=== PATIENT | female | born 1970 | race Caucasian/White ===

== ENCOUNTER 2017-11-29 08:32 | Inpatient (IN) | payer OTHER ==
[2017-11-29 08:44] VITALS: BMI 30.2
--- NOTE | 2017-11-29 08:46 | PDOC ---
History of Present Illness - General Chief Complaint: Syncope/Near Syncope Stated Complaint: SYNCOPE Time Seen by Provider: 11/29/17 08:46 - History of Present Illness Initial Comments: 11/29/17 08:55 The patient is a 47 year old female with no significant PMH who presents for evaluation of syncope. The patient is accompanied by family who assist in providing the history. 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 They are unsure of how long the patient lost consciousness and the patient does not remember the event. She does note that when she stands, she experiences lightheadedness and generalized weakness. She notes that she has been experiencing "flu-like symptoms" over the past few days as well. She otherwise denies fevers, chills, SOB, chest pain , nausea, vomiting, abdominal pain, numbness, tingling, weakness, or changes with urination or bowel movements. Past History - Past Medical History Allergies/Adverse Reactions: Allergies Allergy/AdvReac Type Severity Reaction Status Date / Time No Known Allergies Allergy Verified 11/29/17 08:38 Home Medications: Ambulatory Orders NK [No Known Home Medication] 11/29/17 COPD: No - Suicide/Smoking/Psychosocial Hx Smoking History: Never smoked Have you smoked in the past 12 months: No Information on smoking cessation initiated: No Hx Alcohol Use: No Drug/Substance Use Hx: No Substance Use Type: None Review of Systems - Review of Systems Comments:: 11/29/17 09:02 Constitutional: Generalized weakness. No fevers, chills, malaise HEENT: No Rhinorrhea, nasal congestion, visual changes Cardiovascular: Syncope, Lightheadedness. No chest pain, palpitations, Respiratory: No Cough, SOB, Hemoptysis, Gastrointestinal: No Abdominal pain, Nausea, Vomiting, Constipation, Diarrhea, Melena Genitourinary: No Dysuria, Frequency, Urgency, Hesitancy, Hematuria, Flank pain Musculoskeletal: No Myalgia, arthralgia Skin: No rashes, itching, bruising, pallor Neurologic: No Headache, Dizziness, Numbness, Weakness, or Tingling Psychiatric: No Hallucinations. No SI or HI *Physical Exam - Vital Signs Last Vital Signs Temp Pulse Resp BP Pulse Ox 98.1 F 76 18 104/51 L 100 11/29/17 08:40 11/29/17 08:40 11/29/17 08:40 11/29/17 08:40 11/29/17 08:40 - Physical Exam Comments: 11/29/17 09:03 General Appearance: Nourished. No Apparent Distress HEENT: EOMI, LEATHA. No Pharyngeal Erythema, Tonsillar Exudate, Tonsillar Erythema Neck: No Cervical Lymphadenopathy Respiratory/Chest: Lungs Clear, Normal Breath Sounds. No Crackles, Rales, Rhonchi, Wheezing Cardiovascular: Regular Rhythm, Regular Rate. No Murmur, Gallops, Rubs Gastrointestinal/Abdominal: Normal Bowel Sounds, Soft. No Guarding, Rebound, Tenderness Musculoskeletal: No CVA Tenderness Extremity: Normal Capillary Refill Integumentary: Normal Color, Dry, Warm Neurologic: cardiology technologist II-XII NML intact, Fully Oriented, Alert, Normal Mood/Affect, Normal Response, Motor Strength 5/5. Heart Score/ECG Review #1 ECG reviewed & interpreted by me at: 09:50 General ECG Interpretation: Sinus Rhythm, Normal Rate, Normal Intervals, No acute ischemic changes ED Treatment Course - LABORATORY CBC & Chemistry Diagram: 11/29/17 09:49 11/29/17 09:49 Medical Decision Making - Medical Decision Making 11/29/17 09:04 The patient is a 47 year old female with no significant PMH who presents for evaluation of syncope. Differential includes but is not limited to: ACS, Orthostatic Hypotension, Vaso-Vagal, Dehydration, Infectious, Metabolic Derangement. Given the patient's history and physical exam, we will obtain a cbc, cmp, troponin, EKG, ua to evaluate further. We will treat the patient with iv fluids and continue to monitor and reassess while here in the ED. 11/29/17 11:18 CBC demonstrates a hgb of 5. CMP, troponin is unremarkable. We will transfuse the patient with 2 units of PRBC. The patient notes that she has very heavy periods and it is possible that her anemia is due to iron deficiency. The patient will require admission for further management. We discussed the case with the admitting team who accepted the patient for admission. *DC/Admit/Observation/Transfer Diagnosis at time of Disposition: Anemia Qualifiers: Anemia type: unspecified type Qualified Code(s): D64.9 - Anemia, unspecified Syncope Qualifiers: Syncope type: unspecified Qualified Code(s): R55 - Syncope and collapse - Discharge Dispostion Condition at time of disposition: Stable Decision to Admit order: Yes - Referrals - Patient Instructions - Post Discharge Activity
[2017-11-29] MEDS ORDERED: SODIUM CHLORIDE 1,000 ML IV STA (08:54)
--- NOTE | 2017-11-29 09:20 | PDOC ---
Attending Attestation - Resident Resident Name: RainaAbdias - ED Attending Attestation I have performed the following: I have examined & evaluated the patient, The case was reviewed & discussed with the resident, I agree w/resident's findings & plan, Exceptions are as noted - HPI HPI: 11/29/17 09:17 47-year-old female with no past medical history presents with syncope. The patient reports several days of feeling unwell and with flulike symptoms. Stated that she's been feeling generally weak and lightheaded. Once work today and was sitting on the toilet when she felt lightheaded and dizzy. She says syncopized and fell on the ground. Denies head trauma. Does not take any medications. Denied chest pressure runs of breath. Patient was at work when this occurred and her coworkers called 911. - Physicial Exam PE: 11/29/17 09:19 GENERAL: Awake, alert, and fully oriented, in no acute distress HEAD: No signs of trauma EYES: EOMI, sclera anicteric, conjunctiva clear ENT: Auricles normal inspection, hearing grossly normal, nares patent, oropharynx clear without exudates. Moist mucosa NECK: Normal ROM, supple, no lymphadenopathy, JVD, or masses LUNGS: Breath sounds equal, clear to auscultation bilaterally. No wheezes, and no crackles HEART: Regular rate and rhythm, normal S1 and S2, no murmurs, rubs or gallops ABDOMEN: Soft, nontender, No guarding, no rebound. No masses EXTREMITIES: Normal range of motion, no edema. No clubbing or cyanosis. No cords, erythema, or tenderness NEUROLOGICAL: Cranial nerves II through XII grossly intact. Normal speech, normal gait SKIN: Warm, Dry, normal turgor, no rashes or lesions noted. - Medical Decision Making 11/29/17 09:19 Vital Signs Temp Pulse Resp BP Pulse Ox 98.1 F 76 18 104/51 L 100 11/29/17 08:40 11/29/17 08:40 11/29/17 08:40 11/29/17 08:40 11/29/17 08:40 I suspect the patient likely had orthostatic and vasovagal syncope. Low likelihood of cardiac etiology. We'll obtain labs including troponin. Give IV fluids and reassess. If workup is negative the patient reports feeling better, the patient can be discharged home. 10/13/18 10:29 CBC, BMP 11/29/17 09:49 10 09:49 CMP Sodium 140 mmol/L (136-145) 11/29/17 09:49 Potassium 4.1 mmol/L (3.5-5.1) 11/29/17 09:49 Chloride 110 mmol/L (98-107) H 11/29/17 09:49 Carbon Dioxide 23 mmol/L (21-32) 11/29/17 09:49 Anion Gap 7 MMOL/L (8-16) L 11/29/17 09:49 BUN 10 mg/dL (7-18) 11/29/17 09:49 Creatinine 0.6 mg/dL (0.55-1.3) 11/29/17 09:49 Creat Clearance w eGFR > 60 (>60) 11/29/17 09:49 Random Glucose 104 mg/dL (74-106) 11/29/17 09:49 Calcium 8.0 mg/dL (8.5-10.1) L 11/29/17 09:49 Total Bilirubin 0.3 mg/dL (0.2-1) 11/29/17 09:49 AST 24 U/L (15-37) 11/29/17 09:49 ALT 18 U/L (13-61) 11/29/17 09:49 Alkaline Phosphatase 43 U/L (45-117) L 11/29/17 09:49 Creatine Kinase 85 IU/L (26-192) 11/29/17 09:49 Troponin I < 0.02 ng/ml (0.00-0.05) 11/29/17 09:49 Total Protein 6.8 g/dl (6.4-8.2) 11/29/17 09:49 Albumin 3.2 g/dl (3.4-5.0) L 11/29/17 09:49 Pt noted with Hgb 5.1 and low MVC Could this be iron deficiency anemia? Will need to guiac patient and order 2u PRBC. Consent patient and admit. Heart Score/ECG Review #1 ECG reviewed & interpreted by me at: 09:10 11/29/17 09:14 NSR 77, no std/renny, T wave flat III, normal axis, normal intervals, no WPW, no HOCM, no brugada, QTC 443 msec
[2017-11-29 10:22] LABS: BASO % 0.5 % (0-2.0); EOS % 0.9 % (0-4.5); HEMATOCRIT 18.3 % (32.4-45.2); LYMPH % 11.8 % (8-40); MCHC 27.8 g/dl (32.0-36.0); MEAN CELL VOLUME 54.1 fl (80-96); MEAN PLT VOLUME 8.5 fl (7.5-11.1); MONO % 6.5 % (3.8-10.2); NEUT % 80.3 % (42.8-82.8); PLATELET COUNT 457 K/MM3 (134-434); RBC 3.38 M/mm3 (3.60-5.2); RDW 22.1 % (11.6-15.6); WHITE BLOOD COUNT 7.3 K/mm3 (4.0-10.0)
[2017-11-29 10:24] LABS: ALBUMIN 3.2 g/dl (3.4-5.0); ALK PHOS 43 U/L (45-117); ANION GAP 7 MMOL/L (8-16); BILIRUBIN,TOTAL 0.3 mg/dL (0.2-1); BLOOD UREA NITROGEN 10 mg/dL (7-18); CHLORIDE 110 mmol/L (98-107); CO2 23 mmol/L (21-32); CREATININE 0.6 mg/dL (0.55-1.3); GLUCOSE,RANDOM 104 mg/dL (74-106); MCH 15.1 pg (25.7-33.7); POTASSIUM 4.1 mmol/L (3.5-5.1); SGOT/AST 24 U/L (15-37); SGPT/ALT 18 U/L (13-61); SODIUM 140 mmol/L (136-145); TOT PROT 6.8 g/dl (6.4-8.2)
[2017-11-29 10:25] LABS: HEMOGLOBIN 5.1 GM/dL (10.7-15.3)
[2017-11-29 11:03] LABS: INR 1.24 (0.83-1.09); PROTHROMBIN TIME (PATIENT) 14.7 SEC (9.7-13.0)
[2017-11-29 11:06] LABS: ACTIVATED PTT 22.3 SECONDS (25.2-36.5)
--- NOTE | 2017-11-29 11:12 | HP ---
CHIEF COMPLAINT: syncope PCP: [facility] P:[phone] HISTORY OF PRESENT ILLNESS: 47 yr old woman with no significant pmhx presents s/p syncopal episode at work. She was taking out the trash when she felt lightheaded and dizzy. She went to sit down and felt weak while trying to get up again. Next thing she remembers is being helped up by the nurses at her job. for past 4 months her menstrual cycle has been heavier and lasting longer, 8days/every month. she has also been trying to lose weight by decreasing her meat intake and overall caloric intake. Last few days she has been having a sore throat, denies fevers,cough, maliase, sob. took dayquill on an empty stomach. was recently given rx for etodolac for shoulder pain which she takes infrequently, not taken in last 24hours. saw her plate setter 2yrs ago, no hx of fibroids or abnormal pap smears. last saw her pcp 1 yr ago, no hx of medical diagnosis, no recent hospital visits. ER course was notable for: (1) 2units prbc (2) (3) Recent Travel: [facility] for 2 weeks in July PAST MEDICAL HISTORY: none PAST SURGICAL HISTORY: none Social History: Smoking:never Alcohol:denies Drugs: denies Family History: mother with DMII, younger sister with anemia Allergies No Known Allergies Allergy (Verified 11/29/17 08:38) HOME MEDICATIONS: Home Medications Medication Instructions Recorded NK [No Known Home Medication] 11/29/17 REVIEW OF SYSTEMS CONSTITUTIONAL: Absent: fever, chills, diaphoresis, generalized weakness, malaise, loss of appetite, weight change HEENT: Present: sore throat Absent: rhinorrhea, nasal congestion, throat swelling, difficulty swallowing, mouth swelling, ear pain, eye pain, visual changes CARDIOVASCULAR: Absent: chest pain, syncope, palpitations, irregular heart rate, lightheadedness , peripheral edema RESPIRATORY: Absent: cough, shortness of breath, dyspnea with exertion, orthopnea, wheezing, stridor, hemoptysis GASTROINTESTINAL: Absent: abdominal pain, abdominal distension, nausea, vomiting, diarrhea, constipation, melena, hematochezia GENITOURINARY: Absent: dysuria, frequency, urgency, hesitancy, hematuria, flank pain, genital pain MUSCULOSKELETAL: Absent: myalgia, arthralgia, joint swelling, back pain, neck pain SKIN: Absent: rash, itching, pallor HEMATOLOGIC/IMMUNOLOGIC: Absent: easy bleeding, easy bruising, lymphadenopathy, frequent infections ENDOCRINE: Absent: unexplained weight gain, unexplained weight loss, heat intolerance, cold intolerance NEUROLOGIC: Absent: headache, focal weakness or paresthesias, dizziness, unsteady gait, seizure, mental status changes, bladder or bowel incontinence PHYSICAL EXAMINATION Vital Signs - 24 hr 11/29/17 11/29/17 08:40 10:57 Temperature 98.1 F Pulse Rate 76 Pulse Rate [ 75 Left] Respiratory 18 17 Rate Blood Pressure 104/51 L Blood Pressure 108/60 [Arm] O2 Sat by Pulse 100 100 Oximetry (%) GENERAL: Awake, alert, and fully oriented, in no acute distress. HEAD: Normal with no signs of trauma. EYES: Pupils equal, round and reactive to light, extraocular movements intact, sclera anicteric, conjunctival palor. No lid lag. EARS, NOSE, THROAT: Ears normal, nares patent, oropharynx clear without exudates. Moist mucous membranes. NECK: Normal range of motion, supple without lymphadenopathy, JVD, or masses. LUNGS: Breath sounds equal, clear to auscultation bilaterally. No wheezes, and no crackles. No accessory muscle use. HEART: Regular rate and rhythm, normal S1 and S2, with systolic murmur ABDOMEN: Soft, nontender, not distended, normoactive bowel sounds, no guarding, no rebound, no masses. No hepatomegaly or splenomegaly. MUSCULOSKELETAL: Normal range of motion at all joints. No bony deformities or tenderness. No CVA tenderness. UPPER EXTREMITIES: 2+ pulses, warm, well-perfused. No cyanosis. No clubbing. No peripheral edema. LOWER EXTREMITIES: 2+ pulses, warm, well-perfused. No calf tenderness. No peripheral edema. NEUROLOGICAL: Cranial nerves II-XII intact. Normal speech. Normal gait. PSYCHIATRIC: Cooperative. Good eye contact. Appropriate mood and affect. SKIN: Warm, dry, normal turgor, no rashes or lesions noted, normal capillary refill. Laboratory Results - last 24 hr 11/29/17 11/29/17 11/29/17 09:49 09:49 10:25 WBC 7.3 RBC 3.38 L Hgb 5.1 L* Hct 18.3 L MCV 54.1 L MCH 15.1 L MCHC 27.8 L RDW 22.1 H Plt Count 457 H MPV 8.5 Absolute Neuts (auto) 5.9 Neutrophils % 80.3 Lymphocytes % 11.8 Monocytes % 6.5 Eosinophils % 0.9 Basophils % 0.5 Nucleated RBC % 0 Sodium 140 Potassium 4.1 Chloride 110 H Carbon Dioxide 23 Anion Gap 7 L BUN 10 Creatinine 0.6 Creat Clearance w eGFR > 60 Random Glucose 104 Calcium 8.0 L Total Bilirubin 0.3 AST 24 ALT 18 Alkaline Phosphatase 43 L Creatine Kinase 85 Troponin I < 0.02 Total Protein 6.8 Albumin 3.2 L Stool Occult Blood Trace Crossmatch 11/29/17 10:40 WBC RBC Hgb Hct MCV MCH MCHC RDW Plt Count MPV Absolute Neuts (auto) Neutrophils % Lymphocytes % Monocytes % Eosinophils % Basophils % Nucleated RBC % Sodium Potassium Chloride Carbon Dioxide Anion Gap BUN Creatinine Creat Clearance w eGFR Random Glucose Calcium Total Bilirubin AST ALT Alkaline Phosphatase Creatine Kinase Troponin I Total Protein Albumin Stool Occult Blood Crossmatch See Detail ASSESSMENT/PLAN: 47 yr old yr old woman presents with syncope admitted for further work-up and transfusion #Syncope - likely due to anemia - telemetry monitoring, r/o arrhythmia as cause - head ct to r/o intracranial cause/fracture/hemorrhage as the fall was unwitnessed - 2 units prbc's ordered, repeat cbc tonight and tomorrow to trend need for further units - check echo to evaluate the murmur, the murmur could also be due to anemia - orthostatic vital signs #Microcytic anemia - likely due to menorrhagia and JAVI - anemia work-up; check ferritin, serum iron and TIBC, - check vaginal ultrasound to evaluate endometrius, gynecology consult to evaluate for hormonal therapy - hematology consult to evaluate for iron infusion prior discharge as ferritin is 1 #DVT - SCDs, defer medical ac due to anemia #Diet regular #Activity: as tolerated Visit type - Emergency Visit Emergency Visit: Yes ED Registration Date: 11/29/17 Care time: The patient presented to the Emergency Department on the above date and was hospitalized for further evaluation of their emergent condition. - New Patient This patient is new to me today: Yes Date on this admission: 11/29/17 - Critical Care Critical Care patient: No
[2017-11-29 11:19] LABS: URINE APPEARANCE CLEAR; URINE BILIRUBIN NEGATIVE (<2.0 mg/dL); URINE COLOR COLORLESS; URINE GLUCOSE (UA) NEGATIVE (NEGATIVE); URINE KETONE NEGATIVE (NEGATIVE); URINE LEUK ESTERASE NEGATIVE (NEGATIVE); URINE NITRITE NEGATIVE (NEGATIVE); URINE PROTEIN NEGATIVE (NEGATIVE); URINE UROBILINOGEN NEGATIVE mg/dL (0.2-1.0)
[2017-11-29 11:42] LABS: ANISOCYTOSIS 1+; MACROCYTOSIS 1+; PLATELET ESTIMATE INCREASED
[2017-11-29 11:56] LABS: EPI CELLS RARE /HPF (FEW)
--- NOTE | 2017-11-29 14:11 | PN ---
Teaching Attending Note Name of Resident: Nora Rosales ATTENDING PHYSICIAN STATEMENT I saw and evaluated the patient. I reviewed the resident's note and discussed the case with the resident. I agree with the resident's findings and plan as documented with exceptions below. SUBJECTIVE: 47 yof with no significant PMHx comes with syncope. 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 reports no PO intake since AM. Has been having some sore throat for last 2 days but no reported fevers, or flu like symptoms or diarrhea. Noted with Hb 5.4 on admission. Reports menorrhagia for last 7-8 months lasting7-8 days, heavy,having to change pads almost every 2 hours. No recent CBC or gynecology follow up. 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 Currently feels better. 12 point ROS neg for chest pain, palpitations, headache, dark or bloody stools, or prior EGD/colonscopy. OBJECTIVE: Vital Signs Period Temp Pulse Resp BP Sys/Edwards Pulse Ox Last 24 Hr 98.1 F-98.2 F 71-97 16-18 104-125/51-68 100-100 Intake & Output 11/26/17 11/27/17 11/28/17 11/29/17 23:59 23:59 23:59 23:59 Intake Total 240 Balance 240 Weight 160 lb GENERAL: Awake, alert, and fully oriented, in no acute distress. HEAD: Normal with no signs of trauma. EYES: Pupils equal, round and reactive to light, extraocular movements intact, sclera anicteric, conjunctiva clear. No lid lag. severe pallor EARS, NOSE, THROAT: Ears normal, nares patent, oropharynx clear without exudates. Moist mucous membranes. NECK: Normal range of motion, supple without lymphadenopathy, JVD, or masses. LUNGS: Breath sounds equal, clear to auscultation bilaterally. No wheezes, and no crackles. No accessory muscle use. HEART: S1s2 regular ABDOMEN: Soft, nontender, not distended, normoactive bowel sounds, no guarding, no rebound, no masses. MUSCULOSKELETAL: Normal range of motion at all joints. No bony deformities or tenderness. No CVA tenderness. UPPER EXTREMITIES: 2+ pulses, warm, well-perfused. No cyanosis. No clubbing. No peripheral edema. LOWER EXTREMITIES: 2+ pulses, warm, well-perfused. No calf tenderness. No peripheral edema. NEUROLOGICAL: Cranial nerves II-XII intact. Normal speech. AAOx,3 power 5/5 sensation intact to light touch, symmetric, EOMI, PERRL, non focal exam PSYCHIATRIC: Cooperative. Good eye contact. Appropriate mood and affect. SKIN: Warm, dry, normal turgor, no rashes or lesions noted, normal capillary refill. Laboratory Results - last 24 hr 11/29/17 11/29/17 11/29/17 09:49 09:49 10:25 WBC 7.3 RBC 3.38 L Hgb 5.1 L* Hct 18.3 L MCV 54.1 L MCH 15.1 L MCHC 27.8 L RDW 22.1 H Plt Count 457 H MPV 8.5 Absolute Neuts (auto) 5.9 Neutrophils % 80.3 Lymphocytes % 11.8 Monocytes % 6.5 Eosinophils % 0.9 Basophils % 0.5 Nucleated RBC % 0 Hypochromia 1+ Platelet Estimate Increased Polychromasia 1+ Anisocytosis 1+ Microcytosis 1+ Macrocytosis 1+ PT with INR INR PTT (Actin FS) Sodium 140 Potassium 4.1 Chloride 110 H Carbon Dioxide 23 Anion Gap 7 L BUN 10 Creatinine 0.6 Creat Clearance w eGFR > 60 Random Glucose 104 Calcium 8.0 L Ferritin 1.0 L Total Bilirubin 0.3 AST 24 ALT 18 Alkaline Phosphatase 43 L Creatine Kinase 85 Troponin I < 0.02 Total Protein 6.8 Albumin 3.2 L Urine Color Urine Appearance Urine pH Ur Specific [place] Urine Protein Urine Glucose (UA) Urine Ketones Urine Blood Urine Nitrite Urine Bilirubin Urine Urobilinogen Ur Leukocyte Esterase Urine WBC (Auto) Urine RBC (Auto) Ur Epithelial Cells Urine HCG, Qual Stool Occult Blood Trace Blood Type Antibody Screen Crossmatch 11/29/17 11/29/17 11/29/17 10:40 10:40 10:50 WBC RBC Hgb Hct MCV MCH MCHC RDW Plt Count MPV Absolute Neuts (auto) Neutrophils % Lymphocytes % Monocytes % Eosinophils % Basophils % Nucleated RBC % Hypochromia Platelet Estimate Polychromasia Anisocytosis Microcytosis Macrocytosis PT with INR 14.70 H INR 1.24 H PTT (Actin FS) 22.3 L Sodium Potassium Chloride Carbon Dioxide Anion Gap BUN Creatinine Creat Clearance w eGFR Random Glucose Calcium Ferritin Total Bilirubin AST ALT Alkaline Phosphatase Creatine Kinase Troponin I Total Protein Albumin Urine Color Urine Appearance Urine pH Ur Specific [place] Urine Protein Urine Glucose (UA) Urine Ketones Urine Blood Urine Nitrite Urine Bilirubin Urine Urobilinogen Ur Leukocyte Esterase Urine WBC (Auto) Urine RBC (Auto) Ur Epithelial Cells Urine HCG, Qual Stool Occult Blood Blood Type A POSITIVE A POSITIVE Antibody Screen Negative Crossmatch See Detail 11/29/17 11/29/17 11:00 11:00 WBC RBC Hgb Hct MCV MCH MCHC RDW Plt Count MPV Absolute Neuts (auto) Neutrophils % Lymphocytes % Monocytes % Eosinophils % Basophils % Nucleated RBC % Hypochromia Platelet Estimate Polychromasia Anisocytosis Microcytosis Macrocytosis PT with INR INR PTT (Actin FS) Sodium Potassium Chloride Carbon Dioxide Anion Gap BUN Creatinine Creat Clearance w eGFR Random Glucose Calcium Ferritin Total Bilirubin AST ALT Alkaline Phosphatase Creatine Kinase Troponin I Total Protein Albumin Urine Color Colorless Urine Appearance Clear Urine pH 6.0 Ur Specific [place] 1.004 L Urine Protein Negative Urine Glucose (UA) Negative Urine Ketones Negative Urine Blood 2+ H Urine Nitrite Negative Urine Bilirubin Negative Urine Urobilinogen Negative Ur Leukocyte Esterase Negative Urine WBC (Auto) 1 Urine RBC (Auto) 9 Ur Epithelial Cells Rare Urine HCG, Qual Negative Stool Occult Blood Blood Type Antibody Screen Crossmatch CT brain - neg for acute process EKG: NSR, no acute ST-T changes ASSESSMENT AND PLAN: 47 yof with no prior history here with severe iron deficiency anemia, menorrhagia and syncope -Severe iron deficiency, suspect from menorrhagia. FOBT trace pos but patient menstruating likely confounding -Menorrhagia -Syncope, suspect hypovolumia/orthostasis compounded by underlying severe anemia , low suspicion for cardiac or neurological etiology. Plan: Transfuse 2 units PRBC, monitor h/h. May need additional PRBC accordingly. Iron panel. Hematology input, may need Iron transfusions. Transvaginal/pelvic US. Gynecology input as maybe candidate for depot provera. Outpatient follow up for additional management. telemetry. 2D echo, however can be done outpatient to complete w/u if no new concerns inhouse. Advised patient will need eventual GI follow up and screening EGD/colonoscopy GIPPX [id number] with SCDs dispo pendign clinical improvement. Plan discussed with patient and daughter at bedside in detail, all questions answered. total admit time 65 min.
--- NOTE | 2017-11-29 17:15 | CONSULT ---
Consult Consult Specialty:: Heme/Onc Referred by:: Dr. Bianchi Reason for Consultation:: Anemia - History of Present Illness Chief Complaint: Syncope History of Present Illness: 47F with no PMHx admitted with syncopal episode, preceded by lightheadedness, at work. Found to have severe anemia. No prior labs available. Pt has had heavy menstrual periods for the past 3-4 months, regular, lasting 8 days. Changes pads every time she uses bathroom. Last gynecology visit was about 2 years ago. Not aware of any fibroids/polyps. Denies any other bleeding. Endorses taking iron pills in the past (more than 1 year ago). Remembers that they caused constipation. Has never received IV iron. Endorses ice cravings. Being transfused 2 u PRBC. Feeling better. 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: No: Alzheimer's, CVA, Dementia, Migraine, Multiple Sclerosis, Peripheral Neuropathy, Parkinson's, Seizure, Syncope, TIA, Vertigo, Other Cardio/Vascular: No: AFIB, Aneurysm, Aortic Insufficiency, Aortic Stenosis, CAD , CHF, Deep Vein Thrombosis, HTN, Hyperlipdemia, MS, Mitral Insufficiency, Mitral Stenosis, Murmur, Pulmonary Hypertension, Other Pulmonary: No: Asthma, Bronchitis, Cancer, COPD, O2 Dependent, Pneumonia, Previously Intubated, Pulmonary Embolus, Pulmonary Fibrosis, Sleep Apnea, Other Gastrointestinal: No: Ascites, Cancer, Constipation, Crohn's Disease, Diverticulitis, Diverticulosis, Esophageal Varices, Gastritis, GERD, GI Bleed, Hemorrhoids, Hiatal Hernia, Inflamatory Bowel Disease, Irritable Bowel Disease, Pancreatitis, Peptic Ulcer Disease, Ulcerative Colitis, Other Hepatobiliary: No: Cirrhosis, Cholelithiasis, Cholecystitis, Choledocholithiasis , Hepatitis A, Hepatitis B, Hepatitis C, Other Renal/: No: Renal Failure, Renal Inusuff, BPH, Cancer, Hematuria, Hemodialysis , Neurogenic Bladder, Renal Calculi, UTI, Other Reproductive: No: Ectopic , Endometriosis, Fibroids, PID, Polycystic Ovary Syndrome, Postmenopausal, Other - Alcohol/Substance Use Hx Alcohol Use: No - Smoking History Smoking history: Never smoked Have you smoked in the past 12 months: No Home Medications - Allergies Allergies/Adverse Reactions: Allergies Allergy/AdvReac Type Severity Reaction Status Date / Time No Known Allergies Allergy Verified 10/13/18 08:38 - Home Medications Home Medications: Ambulatory Orders Etodolac 11/29/17 Review of Systems - Review of Systems HENT: denies: Epistaxis, Gingival Bleeding Cardiovascular: reports: No Symptoms Respiratory: reports: No Symptoms Gastrointestinal: denies: Melena, Rectal Bleeding Neurological: reports: No Symptoms Hematology/Lymphatic: denies: Easily Bruised, Excessive Bleeding Physical Exam Vital Signs: Vital Signs Temperature 98.1 F 11/29/17 14:00 Pulse Rate 77 11/29/17 14:00 Respiratory Rate 16 11/29/17 12:16 Blood Pressure 115/65 11/29/17 14:00 O2 Sat by Pulse Oximetry (%) 100 11/29/17 10:57 Constitutional: Yes: Well Nourished, No Distress, Calm Eyes: Yes: Conjunctiva Clear Neck: No: Lymphadenopathy Cardiovascular: Yes: WNL, Regular Rate and Rhythm Respiratory: Yes: Regular, CTA Bilaterally Gastrointestinal: Yes: Soft. No: Distention, Palpable Mass, Tenderness Edema: No Neurological: Yes: Alert, Oriented Labs: CBC, BMP 11/29/17 09:49 11/29/17 09:49 Imaging - Results Cat Scan: Report Reviewed (normal) Assessment/Plan 47F with no PMHx admitted after a syncopal episode and found to have severe iron deficiency anemia in the setting of menorrhagia. Ferritin 1. Being transfused 2 u PRBC. Iron deficit is ~2 g Recommend Venofer 200 mg IV daily while in the hospital. Can continue outpatient infusions after discharge Agree with SPECIAL EDUCATION PARA PROFESSIONAL eval, pelvic sono.
[2017-11-29] MEDS: IRON SUCROSE INJECTION 200 MG in SODIUM CHLORIDE 90 ML IVPB SCH (22:09)
[2017-11-30 01:02] LABS: BASO % 0.4 % (0-2.0); EOS % 1.1 % (0-4.5); HEMATOCRIT 24.3 % (32.4-45.2); HEMOGLOBIN 7.5 GM/dL (10.7-15.3); LYMPH % 22.9 % (8-40); MEAN CELL VOLUME 62.2 fl (80-96); MEAN PLT VOLUME 8.8 fl (7.5-11.1); MONO % 7.9 % (3.8-10.2); NEUT % 67.7 % (42.8-82.8); PLATELET COUNT 416 K/MM3 (134-434); RDW 31.9 % (11.6-15.6); WHITE BLOOD COUNT 8.3 K/mm3 (4.0-10.0)
[2017-11-30 01:11] LABS: MCH 19.3 pg (25.7-33.7)
[2017-11-30 08:08] LABS: SERUM IRON SATURATION 3 % (15-55); TOTAL IRON BINDING CAPACITY 442 ug/dL (250-450); UIBC 430 ug/dL (131-425)
--- NOTE | 2017-11-30 10:57 | EKG ---
Test Reason : Blood Pressure : / mmHG Vent. Rate : 077 BPM Atrial Rate : 077 BPM P-R Int : 140 ms QRS Dur : 088 ms QT Int : 392 ms P-R-T Axes : 010 052 020 degrees QTc Int : 443 ms NORMAL SINUS RHYTHM NORMAL ECG NO PREVIOUS ECGS AVAILABLE Confirmed by ARNOLDO THOMAS MD ([id number]) on 11/30/2017 10:56:49 AM Referred By: Confirmed By:ARNOLDO THOMAS MD
[2017-11-30] MEDS: IRON SUCROSE INJECTION 200 MG in SODIUM CHLORIDE 90 ML IVPB SCH (12:52)
--- NOTE | 2017-11-30 13:30 | CONSULT ---
Consult - text type - Consultation Consultation Note: Cardiology (Dr. Melendrez for Dr. Norwood) Patient seen and examined Reason for consult: NSVT on tele 47 yo female No prior CV history Admitted with syncope in the setting of Hgb 5.1mg/dL [place] sore throat 4 day prior to this admission. Yesterday, did not eat breakfast. Went to work, took joann-seltzer bc not feeling well from sore throat. At work felt sudden onset of dizziness and diaphoresis. Went to go sit down and passed out. Awoke on her own aware of her surroundings and sent to ED by coworkers. Prior to this event, she denies any palpitations, chest pain or dyspnea. Has had increased menstruation for the past 4 months and decreased caloric intake for weight loss Denies any CV risk factors. Specifically, no HTN, HPL, DM, prior tobacco or family h/o premature ASCVD. She has no prior CV disease and has never seen a manager style before or undergone a cardiovascular evaluation. So far on this admission, she has received 2u PRBC with Hgb now 7.5 She denies any CV complaints of chest pain, palpitations or dyspnea. (+) Syncope while at work. Undergoing operating room assistant evaluation for operating room assistant source of bleeding. 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 Single with 3 chidlren. Fam Hx: No h/o CAD or sudden cardiac in family PE: BP 128/68mmHg, P 82/min, RR 18 No distress, receiving PRBC JVP normal Carotids brisk Soft flow murmur, 1/6 at LLSB Lungs are clear bilaterally LE warm no edema Abd is soft, non tender, no HSM EC11/29/2017 at 09:09 showed NSR at 77/min. Normal QTc (443msec) Labs: Hgb 5.1 ->7.5, BUN/Cr 10/0.6, K 4.1, Ferritin 3, trop <0.02 IMP/PLAN Asymptomatic NSVT in young female with severe anemia 1) NSVT -Would check Echo for LV function -Please check Magnesium now -Keep K/Mag >4 and 2mg/dL -Continue tele monitoring -Transfuse as per primary team for anemia -Question is if this NSVT contributed to her syncopal episode which prompted this admission.? Her preceeding sore throat symptoms raises an interesting potential for ?myocarditis, but with negative trop and her benign clinical exam , this seems unlikely. My suspicion is it is more related to her severe anemic status. But would proceed with risk stratifying her at this time with just assessing her LV function (echo). If her LV function is preserved and electrolyte/anemia corrected, would just treat with beta candace Rx, +/- event monitor and follow up with cardiology. If her LV function is reduced (<35%), would then consider beta candace and EPS evaluation. Thank you Dr. Norwood to see tomorrow.
[2017-11-30 13:36] LABS: BASO % 0.4 % (0-2.0); EOS % 1.9 % (0-4.5); HEMATOCRIT 28.1 % (32.4-45.2); HEMOGLOBIN 8.6 GM/dL (10.7-15.3); MCHC 30.5 g/dl (32.0-36.0); MEAN CELL VOLUME 65.1 fl (80-96); MEAN PLT VOLUME 8.4 fl (7.5-11.1); MONO % 8.2 % (3.8-10.2); NEUT % 67.5 % (42.8-82.8); PLATELET COUNT 389 K/MM3 (134-434); RBC 4.31 M/mm3 (3.60-5.2); WHITE BLOOD COUNT 7.7 K/mm3 (4.0-10.0)
[2017-11-30 13:40] LABS: MCH 19.9 pg (25.7-33.7)
[2017-11-30 13:45] LABS: INR 1.23 (0.83-1.09); PROTHROMBIN TIME (PATIENT) 14.5 SEC (9.7-13.0)
[2017-11-30 14:19] LABS: ALBUMIN 3.2 g/dl (3.4-5.0); ALK PHOS 47 U/L (45-117); ANION GAP 9 MMOL/L (8-16); BILIRUBIN,TOTAL 0.6 mg/dL (0.2-1); BLOOD UREA NITROGEN 6 mg/dL (7-18); CALCIUM 8.2 mg/dL (8.5-10.1); CHLORIDE 109 mmol/L (98-107); CO2 24 mmol/L (21-32); CREATININE 0.7 mg/dL (0.55-1.3); GLUCOSE,RANDOM 89 mg/dL (74-106); MAGNESIUM 2.1 mg/dL (1.8-2.4); PHOSPHOROUS 2.6 mg/dL (2.5-4.9); POTASSIUM 3.9 mmol/L (3.5-5.1); SGOT/AST 14 U/L (15-37); SGPT/ALT 16 U/L (13-61); SODIUM 142 mmol/L (136-145)
--- NOTE | 2017-11-30 14:48 | PN ---
Progress Note, Physician Chief Complaint: Severe iron deficiency anemia History of Present Illness: Feels better. Less tired. Mensturation currently light - Current Medication List Current Medications: Active Medications Iron Sucrose 200 mg/ Sodium (Chloride) 100 mls @ 100 mls/hr IVPB DAILY CASEY Stop: 12/08/17 23:59 Last Admin: 11/30/17 12:52 Dose: 100 mls/hr - Objective Vital Signs: Vital Signs Temperature 98.8 F 11/30/17 10:11 Pulse Rate 82 11/30/17 10:11 Respiratory Rate 18 11/30/17 10:11 Blood Pressure 128/68 11/30/17 10:11 O2 Sat by Pulse Oximetry (%) 100 11/30/17 09:00 Constitutional: Yes: Well Nourished, No Distress Eyes: No: Sclera Icterus Neck: Yes: WNL Cardiovascular: Yes: Regular Rate and Rhythm Respiratory: Yes: Regular, CTA Bilaterally Gastrointestinal: Yes: Soft. No: Distention, Palpable Mass, Tenderness Extremities: Yes: WNL Edema: No Labs: CBC, BMP 11/30/17 13:05 11/30/17 13:10 INR, PTT INR 1.23 (0.83-1.09) H 11/30/17 13:10 Assessment/Plan 47F with severe iron deficiency anemia (ferritin 1) in setting of menorrhagia s/p 2u PRBC with appropriate response Started on Venofer 200 mg daily, s/p 2nd dose today. No issues during infusion CARPET WEAVER eval with pelvic ultrasound
--- NOTE | 2017-11-30 15:26 | PN ---
Physical Exam: SUBJECTIVE: Patient seen and examined, doing well, vaginal bleed improved. no chest pain, dizziness, palpitations, dyspnea, abdominal pain or new concerns. OBJECTIVE: Vital Signs Period Temp Pulse Resp BP Sys/Edwards Pulse Ox Last 24 Hr 98.0 F-98.8 F 79-93 18-20 111-128/62-68 100-100 GENERAL: The patient is awake, alert, and fully oriented, in no acute distress. HEAD: Normal with no signs of trauma. CVS:S1S2 regular Chest: CTAB, no rales or wheezing Abdomen:Soft, NT, ND positive bowel sounds Extremities: no edema Laboratory Results - last 24 hr 11/29/17 11/29/17 11/29/17 10:40 10:50 11:32 WBC RBC Hgb Hct MCV MCH MCHC RDW Plt Count MPV Absolute Neuts (auto) Neutrophils % Lymphocytes % Monocytes % Eosinophils % Basophils % Nucleated RBC % PT with INR INR Sodium Potassium Chloride Carbon Dioxide Anion Gap BUN Creatinine Creat Clearance w eGFR Random Glucose Calcium Phosphorus Magnesium Iron 12 L TIBC 442 Iron Saturation 3 L Total Bilirubin AST ALT Alkaline Phosphatase Total Protein Albumin Blood Type A POSITIVE A POSITIVE Antibody Screen Negative Crossmatch See Detail See Detail 11/30/17 11/30/17 11/30/17 00:00 13:05 13:10 WBC 8.3 7.7 RBC 3.90 4.31 Hgb 7.5 L 8.6 L Hct 24.3 L D 28.1 L D MCV 62.2 L D 65.1 L MCH 19.3 L D 19.9 L MCHC 31.0 L 30.5 L RDW 31.9 H 34.0 H Plt Count 416 389 MPV 8.8 8.4 Absolute Neuts (auto) 5.6 5.2 Neutrophils % 67.7 67.5 Lymphocytes % 22.9 D 22.0 Monocytes % 7.9 8.2 Eosinophils % 1.1 1.9 Basophils % 0.4 0.4 Nucleated RBC % 0 0 PT with INR 14.50 H INR 1.23 H Sodium Potassium Chloride Carbon Dioxide Anion Gap BUN Creatinine Creat Clearance w eGFR Random Glucose Calcium Phosphorus Magnesium Iron TIBC Iron Saturation Total Bilirubin AST ALT Alkaline Phosphatase Total Protein Albumin Blood Type Antibody Screen Crossmatch 11/30/17 13:10 WBC RBC Hgb Hct MCV MCH MCHC RDW Plt Count MPV Absolute Neuts (auto) Neutrophils % Lymphocytes % Monocytes % Eosinophils % Basophils % Nucleated RBC % PT with INR INR Sodium 142 Potassium 3.9 Chloride 109 H Carbon Dioxide 24 Anion Gap 9 BUN 6 L Creatinine 0.7 Creat Clearance w eGFR > 60 Random Glucose 89 Calcium 8.2 L Phosphorus 2.6 Magnesium 2.1 Iron TIBC Iron Saturation Total Bilirubin 0.6 AST 14 L ALT 16 Alkaline Phosphatase 47 Total Protein 7.0 Albumin 3.2 L Blood Type Antibody Screen Crossmatch Active Medications Generic Name Dose Route Start Last Admin Trade Name Freq PRN Reason Stop Dose Admin Iron Sucrose 200 mg/ Sodium 100 mls @ 100 mls/hr 11/29/17 18:00 11/30/17 12: 52 Chloride IVPB 12/08/17 23:59 100 mls/hr DAILY CASEY Administration Transvaginal US - prelim read - anterior and fundal intramural fibroid Telemetry: NSVT ASSESSMENT/PLAN: 47 yof with no prior history here with severe iron deficiency anemia, menorrhagia and syncope, found with fibroids and NSVT on monitor -Severe iron deficiency, suspect from menorrhagia. FOBT trace pos but patient menstruating likely confounding -Anterior/Fundal intramural fibroid, likely etiology of menorrhagia -NSVT -Syncope, suspect hypovolumia/orthostasis compounded by underlying severe anemia , vs cardiac etiology (asymptomatic NSVT on telemetry) Plan: s/p 3 units PRBC, h/h appropriate response. Hematology input noted. IV iron, will need outpatient follow up. Transvaginal US with fibroid, Outpatient Hand Outside Cutter follow up. Telemetry with NSVT, cardiology input appreciated. check 2D echo. Low dose metoprolol pending above. Replete lytes prn. Advised patient and daughter will need eventual GI follow up and screening EGD/ colonoscopy DVTPPx with SCDs dispo pending clinical improvement. Plan discussed with patient and daughter at bedside in detail, all questions answered. Discussed with Dr. Wakefield. Visit type - Emergency Visit Emergency Visit: Yes ED Registration Date: 11/29/17 Care time: The patient presented to the Emergency Department on the above date and was hospitalized for further evaluation of their emergent condition. - New Patient This patient is new to me today: No - Critical Care Critical Care patient: No - Discharge Referral Referred to [facility] Med [facility] No
--- NOTE | 2017-11-30 17:18 | CON.OBG ---
Consult Consult Specialty:: manager msw Reason for Consultation:: anemia - History of Present Illness Chief Complaint: 47 y/o admitted for anemia and transfused. Sono show ? fibroids and not officially read. Discussed with pt possible hormonmal irreg. States her cycles are q months and last for 8 days. Discussed with pt a hormonal work up and possible ocp use to shorten her cycles. 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: No: Alzheimer's, CVA, Dementia, Migraine, Multiple Sclerosis, Peripheral Neuropathy, Parkinson's, Seizure, Syncope, TIA, Vertigo, Other Cardio/Vascular: No: AFIB, Aneurysm, Aortic Insufficiency, Aortic Stenosis, CAD , CHF, Deep Vein Thrombosis, HTN, Hyperlipdemia, [place], Mitral Insufficiency, Mitral Stenosis, Murmur, Pulmonary Hypertension, Other Pulmonary: No: Asthma, Bronchitis, Cancer, COPD, O2 Dependent, Pneumonia, Previously Intubated, Pulmonary Embolus, Pulmonary Fibrosis, Sleep Apnea, Other Gastrointestinal: No: Ascites, Cancer, Constipation, Crohn's Disease, Diverticulitis, Diverticulosis, Esophageal Varices, Gastritis, GERD, GI Bleed, Hemorrhoids, Hiatal Hernia, Inflamatory Bowel Disease, Irritable Bowel Disease, Pancreatitis, Peptic Ulcer Disease, Ulcerative Colitis, Other Hepatobiliary: No: Cirrhosis, Cholelithiasis, Cholecystitis, Choledocholithiasis , Hepatitis A, Hepatitis B, Hepatitis C, Other Renal/: No: Renal Failure, Renal Inusuff, BPH, Cancer, Hematuria, Hemodialysis , Neurogenic Bladder, Renal Calculi, UTI, Other - Alcohol/Substance Use Hx Alcohol Use: No - Smoking History Smoking history: Never smoked Have you smoked in the past 12 months: No Home Medications - Allergies Allergies/Adverse Reactions: Allergies Allergy/AdvReac Type Severity Reaction Status Date / Time No Known Allergies Allergy Verified 11/29/17 08:38 - Home Medications Home Medications: Ambulatory Orders Etodolac 11/29/17 Physical Exam-PYTHON CONSULTANT Vital Signs: Vital Signs Temperature 98.5 F 11/30/17 14:00 Pulse Rate 84 11/30/17 14:00 Respiratory Rate 18 11/30/17 10:11 Blood Pressure 123/77 11/30/17 14:00 O2 Sat by Pulse Oximetry (%) 100 11/30/17 09:00 Labs: CBC, BMP 11/30/17 13:05 10/14/18 13:10 Assessment/Plan see above anemia leiomyoma will fu in office for hormonal eval and possible cycle control
[2017-12-01 03:24] VITALS: TEMP 98.3
[2017-12-01 06:55] LABS: BASO % 0.6 % (0-2.0); EOS % 2.3 % (0-4.5); HEMATOCRIT 27.6 % (32.4-45.2); HEMOGLOBIN 8.6 GM/dL (10.7-15.3); MCHC 31.1 g/dl (32.0-36.0); MEAN CELL VOLUME 64.5 fl (80-96); MEAN PLT VOLUME 8.5 fl (7.5-11.1); NEUT % 71.1 % (42.8-82.8); PLATELET COUNT 413 K/MM3 (134-434); RBC 4.28 M/mm3 (3.60-5.2); RDW 34.4 % (11.6-15.6); WHITE BLOOD COUNT 9.1 K/mm3 (4.0-10.0)
[2017-12-01 07:53] LABS: ANION GAP 10 MMOL/L (8-16); BLOOD UREA NITROGEN 6 mg/dL (7-18); CALCIUM 8.5 mg/dL (8.5-10.1); CHLORIDE 110 mmol/L (98-107); CO2 24 mmol/L (21-32); CREATININE 0.6 mg/dL (0.55-1.3); GLUCOSE,RANDOM 85 mg/dL (74-106); PHOSPHOROUS 2.9 mg/dL (2.5-4.9); POTASSIUM 3.9 mmol/L (3.5-5.1); SODIUM 143 mmol/L (136-145)
[2017-12-01 08:05] VITALS: BP 124/72; PULSE 70
--- NOTE | 2017-12-01 08:30 | PN ---
Teaching Attending Note Name of Resident: Herb Escalante ATTENDING PHYSICIAN STATEMENT I saw and evaluated the patient. I reviewed the resident's note and discussed the case with the resident. I agree with the resident's findings and plan as documented with exceptions below. SUBJECTIVE: patient seen and examined. no complaints. Menstrual bleeding light now. OBJECTIVE: Vital Signs Period Temp Pulse Resp BP Sys/Edwards Pulse Ox Last 24 Hr 97.8 F-99.3 F 65-84 18-20 116-134/60-77 99-100 Intake & Output 11/28/17 11/29/17 11/30/17 12/01/17 23:59 23:59 23:59 23:59 Intake Total 1490 870 250 Balance 1490 870 250 Weight 160 lb General: sitting in bed in no acute distress CVS: S1s2 regular chest: CTAB, no rales or wheezing Abdomen:soft, obese, Nt Extremities: no edema Active Medications Iron Sucrose 200 mg/ Sodium (Chloride) 100 mls @ 100 mls/hr IVPB DAILY CASEY Stop: 12/08/17 23:59 Last Admin: 11/30/17 12:52 Dose: 100 mls/hr Laboratory Results - last 24 hr 11/30/17 11/30/17 11/30/17 13:05 13:10 13:10 WBC 7.7 RBC 4.31 Hgb 8.6 L Hct 28.1 L D MCV 65.1 L MCH 19.9 L MCHC 30.5 L RDW 34.0 H Plt Count 389 MPV 8.4 Absolute Neuts (auto) 5.2 Neutrophils % 67.5 Lymphocytes % 22.0 Monocytes % 8.2 Eosinophils % 1.9 Basophils % 0.4 Nucleated RBC % 0 PT with INR 14.50 H INR 1.23 H Sodium 142 Potassium 3.9 Chloride 109 H Carbon Dioxide 24 Anion Gap 9 BUN 6 L Creatinine 0.7 Creat Clearance w eGFR > 60 Random Glucose 89 Calcium 8.2 L Phosphorus 2.6 Magnesium 2.1 Total Bilirubin 0.6 AST 14 L ALT 16 Alkaline Phosphatase 47 Total Protein 7.0 Albumin 3.2 L 12/01/17 12/01/17 05:30 05:30 WBC 9.1 RBC 4.28 Hgb 8.6 L Hct 27.6 L MCV 64.5 L MCH 20.0 L MCHC 31.1 L RDW 34.4 H Plt Count 413 MPV 8.5 Absolute Neuts (auto) 6.5 Neutrophils % 71.1 Lymphocytes % 19.0 Monocytes % 7.0 Eosinophils % 2.3 Basophils % 0.6 Nucleated RBC % 0 PT with INR INR Sodium 143 Potassium 3.9 Chloride 110 H Carbon Dioxide 24 Anion Gap 10 BUN 6 L Creatinine 0.6 Creat Clearance w eGFR > 60 Random Glucose 85 Calcium 8.5 Phosphorus 2.9 Magnesium 2.0 Total Bilirubin AST ALT Alkaline Phosphatase Total Protein Albumin telemetry: ASSESSMENT AND PLAN: 47 yof with no prior history here with severe iron deficiency anemia, menorrhagia and syncope, found with fibroids and NSVT on monitor -Severe iron deficiency -Uterine leiomyoma with menorrhagia -NSVT -Syncope, suspect hypovolumia/orthostasis compounded by underlying severe anemia , vs cardiac etiology (asymptomatic NSVT on telemetry) Plan: s/p 3 units PRBC, h/h appropriate response. Hematology input noted. IV iron, Start oral iron and outpatient follow up in 1 week. Birth Attendant input noted, outpatient follow up. Cardiology input appreciated. 2D echo noted. Discussed with Dr. Norwood, low dose metoprolol and outpatient follow up to discuss Holter monitoring. Advised patient and daughter will need eventual GI follow up and screening EGD/ colonoscopy FOBT trace pos but patient menstruating when sample sent, likely confounding dispo d/c home today with outpatient cardiology, hematology and Gynecology follow up. Plan has been discussed in detail with patient and daughter at bedside. They relay understanding, agree to comply with follow up.
[2017-12-01] MEDS ORDERED: PT OWN MED DRAWER 7, Y5N ONE (09:05)
--- NOTE | 2017-12-01 09:19 | PN ---
Progress Note, Physician Chief Complaint: syncope History of Present Illness: no dizzy/LH, no syncope no cp, sob, palpitations no cigs - Current Medication List Current Medications: Active Medications Iron Sucrose 200 mg/ Sodium (Chloride) 100 mls @ 100 mls/hr IVPB DAILY CASEY Stop: 12/08/17 23:59 Last Admin: 11/30/17 12:52 Dose: 100 mls/hr - Objective Vital Signs: Vital Signs Temperature 98.3 F 12/01/17 08:04 Pulse Rate 70 12/01/17 08:04 Respiratory Rate 18 12/01/17 08:04 Blood Pressure 124/72 12/01/17 08:04 O2 Sat by Pulse Oximetry (%) 99 12/01/17 08:03 Constitutional: Yes: No Distress, Calm Eyes: No: Sclera Icterus HENT: No: Nasal Congestion Cardiovascular: Yes: Regular Rate and Rhythm, S1, S2, Other (PMI non diplaced). No: Gallop, Murmur Respiratory: Yes: CTA Bilaterally. No: Accessory Muscle Use, Rales, Wheezes Gastrointestinal: Yes: Normal Bowel Sounds, Soft. No: Tenderness Musculoskeletal: Yes: Other (No kyphosis) Extremities: No: Cold, Cyanosis Edema: No Integumentary: No: Jaundice Neurological: Yes: Alert, Oriented (x3) Psychiatric: No: Agitated Labs: CBC, BMP 12/01/17 05:30 12/01/17 05:30 INR, PTT INR 1.23 (0.83-1.09) H 11/30/17 13:10 Assessment/Plan ECG 11/29/2017 at 09:09: showed NSR at 77/min. Normal QTc (443msec) tele: NSVT episode (10 beats) on 11/30 at 12:31 pm. NSR with no events since syncope, NSVT -10 beat runs NSVT x 2 on tele here -suspect syncope due to profound anemia (>> sustained ventricular arrhythmia). denies palpitations or chest pressure at time of LH prodrome (which lasted approx 5 min) -preceding sore throat noted--doubt viral myocarditis with normal troponin, no signs LV dysfunction or CHF. appears non-toxic and hemodyn stable. check repeat troponin, CRP, ESR, BNP. (note: if crp/esr elevated, it may be residual from recent viral infection. but if normal, this makes myocarditis extremely unlikely -echo pending -keep K/Mag >4 and 2mg/dL -continue tele monitoring -consider outpatient event monitoring/prolonged holter -prbc's and anemia w/u per hospitalist anemia: -per hospitalist
[2017-12-01] MEDS: IRON SUCROSE INJECTION 200 MG in SODIUM CHLORIDE 90 ML IVPB SCH (09:27)
[2017-12-01 10:53] LABS: N-TERMINAL BNP 143.2 pg/ml (5-125)
[2017-12-01] MEDS ORDERED: metoPROLOL SUCCINATE 25 MG TAB.SR.24H (FP) PO SCH (11:30)
--- NOTE | 2017-12-01 12:08 | ECHO ---
Name: MAGUI GARCIACIA Exam:Adult Echocardiogram Study Date: 12/01/2017 10:10 AM Age: 47 yrs [facility] Height: 61 in Weight: 160 lb BSA: 1.7 m2 MMode/2D Measurements & Calculations IVSd: 0.88 cm Ao root diam: 3.0 cm LVIDd: 4.8 cm LA dimension: 3.1 cm LVIDs: 3.4 cm LVPWd: 0.75 cm EDV(Teich): 109.0 ml TAPSE: 2.7 cm ESV(Teich): 48.0 ml RV S Rishi: 10.8 cm/sec Doppler Measurements & Calculations MV E max rishi: 79.5 cm/sec Ao V2 max: 93.0 cm/sec MV A max rishi: 62.2 cm/sec Ao max P.5 mmHg MV E/A: 1.3 MV dec time: 0.18 sec LV V1 max P.1 mmHg MR max rishi: 424.8 cm/sec LV V1 max: 73.0 cm/sec MR max P.3 mmHg TR max rishi: 211.7 cm/sec PI end-d rishi: 96.6 cm/sec TR max P.9 mmHg Med Peak E' Rishi: 9.6 cm/sec Med E/e': 8.3 Lat Peak E' Rishi: 11.1 cm/sec Lat E/e': 7.2 Procedure A complete two-dimensional transthoracic echocardiogram was performed (2D, M-mode, Doppler and color flow Doppler). Left Ventricle The left ventricle is normal in size. Left ventricular systolic function is normal. Ejection Fraction = 55- 60%. No regional wall motion abnormalities noted. Right Ventricle The right ventricle is normal size. The right ventricular systolic function is normal. RV systolic TD I is 11 cm/s. Atria The left atrial size is normal. Right atrial size is normal. Mitral Valve There is mild mitral annular calcification. There is mild mitral regurgitation. Tricuspid Valve The tricuspid valve is normal in structure and function. No tricuspid regurgitation. Aortic Valve The aortic valve is normal in structure and function. No aortic regurgitation is present. Pulmonic Valve The pulmonic valve is not well visualized. Mild pulmonic valvular regurgitation. Great Vessels The aortic root is normal size. Pericardium/Pleura There is no pericardial effusion. Interpretation Summary The left ventricle is normal in size. Left ventricular systolic function is normal. No regional wall motion abnormalities noted. Ejection Fraction = 55-60%. The right ventricular systolic function is normal. The left atrial size is normal. Right atrial size is normal. There is mild mitral annular calcification. There is mild mitral regurgitation. Mild pulmonic valvular regurgitation. There is no pericardial effusion. Previous study is not available for comparison Mc Doherty MD 12/01/2017 12:08 PM
--- NOTE | 2017-12-01 15:14 | DS ---
Physical Exam: SUBJECTIVE: Patient seen and examined this AM. She currently has no complaints and says that she is feeling well and ready to go home. OBJECTIVE: Vital Signs Period Temp Pulse Resp BP Sys/Edwards Pulse Ox Last 24 Hr 97.8 F-99.3 F 65-71 18-20 116-134/60-77 99-99 PHYSICAL EXAM GENERAL: A&O, no acute distress HEAD: Normocephalic, atraumatic. EYES: PERRL, no scleral icterus EARS, NOSE, THROAT: oropharynx clear without exudates. Moist mucous membranes. NECK: supple without lymphadenopathy LUNGS: CTA b/l, no crackles or wheezes HEART: Regular rate and rhythm, normal S1 and S2 without murmur ABDOMEN: Soft, nontender to palpation, normoactive bowel sounds MUSCULOSKELETAL: No bony deformities or tenderness. EXTREMITIES: 2+ pulses, warm, well-perfused. No peripheral edema. PSYCHIATRIC: Cooperative. Good eye contact. Appropriate mood and affect. LABS Laboratory Results - last 24 hr 12/01/17 12/01/17 12/01/17 05:30 05:30 09:36 WBC 9.1 RBC 4.28 Hgb 8.6 L Hct 27.6 L MCV 64.5 L MCH 20.0 L MCHC 31.1 L RDW 34.4 H Plt Count 413 MPV 8.5 Absolute Neuts (auto) 6.5 Neutrophils % 71.1 Lymphocytes % 19.0 Monocytes % 7.0 Eosinophils % 2.3 Basophils % 0.6 Nucleated RBC % 0 ESR Sodium 143 Potassium 3.9 Chloride 110 H Carbon Dioxide 24 Anion Gap 10 BUN 6 L Creatinine 0.6 Creat Clearance w eGFR > 60 Random Glucose 85 Calcium 8.5 Phosphorus 2.9 Magnesium 2.0 Troponin I < 0.02 C-Reactive Protein 0.3 B-Natriuretic Peptide 143.2 H 12/01/17 09:36 WBC RBC Hgb Hct MCV MCH MCHC RDW Plt Count MPV Absolute Neuts (auto) Neutrophils % Lymphocytes % Monocytes % Eosinophils % Basophils % Nucleated RBC % ESR 38 H Sodium Potassium Chloride Carbon Dioxide Anion Gap BUN Creatinine Creat Clearance w eGFR Random Glucose Calcium Phosphorus Magnesium Troponin I C-Reactive Protein B-Natriuretic Peptide IMAGING: Transvaginal US: Prominent uterus measuring 10.4 x 7 x 6 cm, probable 4cm intramural soft tissue focus likely leiomyoma, 2.7 cm subserosal leiomyoma. Head CT: Negative for evidence of acute fracture or bleed. ECHO: Normal LV Size and function, EF 55-60%, no wall motion abnormalities HOSPITAL COURSE: Date of Admission:11/29/17 Date of Discharge: 12/01/17 HPI on Admission 47 yr old woman with no significant pmhx presents s/p syncopal episode at work. She was taking out the trash when she felt lightheaded and dizzy. She went to sit down and felt weak while trying to get up again. Next thing she remembers is being helped up by the nurses at her job. For past 4 months her menstrual cycle has been heavier and lasting longer, 8days/every month. she has also been trying to lose weight by decreasing her meat intake and overall caloric intake. Last few days she has been having a sore throat, denies fevers, cough, malaise, sob. She took dayquill on an empty stomach. She was recently given rx for etodolac for shoulder pain which she takes infrequently, not taken in last 24hours. She saw her skelp processor 2yrs ago, no hx of fibroids or abnormal pap smears. She last saw her pcp 1 yr ago, no hx of medical diagnosis, no recent hospital visits. Hospital Course She was found to have symptomatic anemia with an H/H of 5.1/18 on admission. She was seen by Hematology who recommended IV Iron in addition to the units of blood she was transfused over. She required a total of 3 units to be transfused over 2 days, and her H/H stabilized from day 2 to day 3 at 8.6/27.6. She was seen by cardiology who recommended an Echo which was resulted as mentioned above. She also had a few episodes of NSVT on the youth nutritional monitor which was noted by cardiology. There was a consideration of viral myocarditis which could have led to syncopal episode which prompted the admission. ESR and CRP were ordered to rule out viral myocarditis which were not suggestive of myocarditis. She was deemed medically safe for discharge with close follow up by her primary care physician, gynecology, and cardiology. She was discharged on PO Iron 325 mg Daily and instructed to follow up with heme/onc in one week Minutes to complete discharge: 35 Discharge Summary Reason For Visit: SYNCOPE, ANEMIA Current Active Problems Anemia (Acute) Syncope (Acute) Condition: Good - Instructions Diet, Activity, Other Instructions: You were found with severe anemia and iron deficiency. You received 3 units of blood and IV iron. You were found with uterine leiomyoma (uterine fibroids) which are likely reason for your heavy periods. You will need to follow up with hematology (blood doctor) and Internal Communications Writer in 1 week to discuss further plan. You were noted with transient abnormal rhythm on your heart You were seen by cardiology and recommended low dose medication metoprolol. You will need to follow up with tube drawing supervisor to discuss outpatient holter monitoring. MEDICATIONS: You should start taking Iron 325 mg tablets by mouth once daily. This medication can cause constipation so it is important that you have regular bowel movements. You can take over the counter stool softener if you need to for regular bowel movements. You should also be aware that taking iron can make your stools darker than normal. This is not abnormal and there is no cause for concern. If you notice actual blood in your stool, this is not due to the iron and you should call your doctor or return to the emergency department immediately. You were also started on Metoprolol Succinate 12.5 mg by mouth once per day. You should continue taking this medication upon discharge. This medication lowers your heart rate, so if you feel lightheaded, dizzy, or short of breath, you should call your doctor or tube drawing supervisor and they may wish to discontinue it until you are seen in the office. FOLLOW UP: You should follow up with your primary care physician within one week of discharge from the hospital. They will likely want to check a CBC (to check your blood counts). You should follow up with your skelp processor for management of your bleeding within 1 week of discharge from the hospital. You should follow up with your tube drawing supervisor (heart doctor) as well within 1-2 weeks of discharge from the hospital (please discuss outpatient holter monitor). You should also follow up with a manager costing (Blood doctor) within 1 week. Follow up Blood work: CBC (complete blood count) in 1 week ACTIVITY: Avoid driving or operating heavy machinery till seen by your doctor. If you have worsening bleeding, Shortness of breath, dizziness, pass out, or any other concerning symptoms, you should call your doctor or return to the emergency department immediately. Referrals: Tex Tafoya MD [Staff Physician] - Korey Norwood MD [Staff Physician] - Luis Alfredo Woodall MD [Staff Physician] - Disposition: HOME - Home Medications Comprehensive Discharge Medication List: Ambulatory Orders Ferrous Sulfate [Iron] 325 mg PO DAILY #30 tablet 12/01/17 Metoprolol Succinate [Toprol XL -] 12.5 mg PO DAILY #30 tab.sr.24h 12/01/17 This patient is new to me today: Yes Date on this admission: 12/01/17 Emergency Visit: Yes ED Registration Date: 11/29/17 Care time: The patient presented to the Emergency Department on the above date and was hospitalized for further evaluation of their emergent condition. Critical Care patient: No - Discharge Referral Referred to [facility] Med P.C.: No
--- NOTE | 2017-12-01 15:51 | PN ---
Physical Exam: Patient seen and examined at bedside. No new complaints . No overnight events. Eager to go home. Denies CP,ALMANZA, SoB, palpitations, abdominal pain, nausea or vomiting. OBJECTIVE: Vital Signs Period Temp Pulse Resp BP Sys/Edwards Pulse Ox Last 24 Hr 97.8 F-99.3 F 65-71 18-20 116-134/60-77 99-99 PHYSICAL EXAM GENERAL: A&O, no acute distress HEAD: Normocephalic, atraumatic. EYES: PERRL, no scleral icterus EARS, NOSE, THROAT: oropharynx clear without exudates. Moist mucous membranes. NECK: supple without lymphadenopathy LUNGS: CTA b/l, no crackles or wheezes HEART: Regular rate and rhythm, normal S1 and S2 without murmur ABDOMEN: Soft, nontender to palpation, normoactive bowel sounds MUSCULOSKELETAL: No bony deformities or tenderness. EXTREMITIES: 2+ pulses, warm, well-perfused. No peripheral edema. PSYCHIATRIC: Cooperative. Good eye contact. Appropriate mood and affect. Laboratory Results - last 24 hr 12/01/17 12/01/17 12/01/17 05:30 05:30 09:36 WBC 9.1 RBC 4.28 Hgb 8.6 L Hct 27.6 L MCV 64.5 L MCH 20.0 L MCHC 31.1 L RDW 34.4 H Plt Count 413 MPV 8.5 Absolute Neuts (auto) 6.5 Neutrophils % 71.1 Lymphocytes % 19.0 Monocytes % 7.0 Eosinophils % 2.3 Basophils % 0.6 Nucleated RBC % 0 ESR Sodium 143 Potassium 3.9 Chloride 110 H Carbon Dioxide 24 Anion Gap 10 BUN 6 L Creatinine 0.6 Creat Clearance w eGFR > 60 Random Glucose 85 Calcium 8.5 Phosphorus 2.9 Magnesium 2.0 Troponin I < 0.02 C-Reactive Protein 0.3 B-Natriuretic Peptide 143.2 H 12/01/17 09:36 WBC RBC Hgb Hct MCV MCH MCHC RDW Plt Count MPV Absolute Neuts (auto) Neutrophils % Lymphocytes % Monocytes % Eosinophils % Basophils % Nucleated RBC % ESR 38 H Sodium Potassium Chloride Carbon Dioxide Anion Gap BUN Creatinine Creat Clearance w eGFR Random Glucose Calcium Phosphorus Magnesium Troponin I C-Reactive Protein B-Natriuretic Peptide Active Medications Generic Name Dose Route Start Last Admin Trade Name Freq PRN Reason Stop Dose Admin Iron Sucrose 200 mg/ Sodium 100 mls @ 100 mls/hr 11/29/17 18:00 12/01/17 09: 27 Chloride IVPB 12/08/17 23:59 100 mls/hr DAILY CASEY Administration Metoprolol Succinate 12.5 mg 12/01/17 11:30 Toprol Xl - PO DAILY CASEY IMAGING: Transvaginal US: Prominent uterus measuring 10.4 x 7 x 6 cm, probable 4cm intramural soft tissue focus likely leiomyoma, 2.7 cm subserosal leiomyoma. Head CT: Negative for evidence of acute fracture or bleed. ECHO: Normal LV Size and function, EF 55-60%, no wall motion abnormalities ASSESSMENT/PLAN: 47F with severe iron deficiency anemia (ferritin 1) in setting of menorrhagia. Problem List - Problems (1) Anemia Assessment/Plan: * s/p 2u PRBC with appropriate response * 2 doses of Venofer 200 mg daily * advised to continue iron supplementation. PO iron 324mg daily * No issues during infusion * f/u with PARTS FABRICATOR Code(s): D64.9 - ANEMIA, UNSPECIFIED Qualifiers: Anemia type: unspecified type Qualified Code(s): D64.9 - Anemia, unspecified (2) Syncope Code(s): R55 - SYNCOPE AND COLLAPSE Qualifiers: Syncope type: unspecified Qualified Code(s): R55 - Syncope and collapse Visit type - Emergency Visit Emergency Visit: Yes ED Registration Date: 11/29/17 Care time: The patient presented to the Emergency Department on the above date and was hospitalized for further evaluation of their emergent condition. - New Patient This patient is new to me today: Yes Date on this admission: 12/01/17 - Critical Care Critical Care patient: No
== END 2017-12-01 16:51 | disposition home or self-care (01) | DRG 812 ==
LOC: JER 08:32 → JERBED 11:04 → J4W 12:08
PROVIDERS: ADMIT Hospitalist; ATTEND Hospitalist
PROC: 30233N1 Transfusion of Nonautologous Red Blood Cells into Peripheral Vein, Percutaneous Approach (ICD-10-PCS; principal; 2017-11-29)
DX: D50.9 Iron deficiency anemia, unspecified (principal); I47.1 Supraventricular tachycardia; R55 Syncope and collapse; N92.0 Excessive and frequent menstruation with regular cycle; D25.1 Intramural leiomyoma of uterus
CPT/HCPCS: 36415; 36430; 70450-TC; 76830-TC; 76856-TC; 80048; 80053; 81003; 81015; 82272; 82550; 82728; 83540; 83550; 83735; 83880; 84100; 84484; 84703; 85025; 85610; 85651; 85730; 86140; 86850; 86900; 86901; 86922; 93005; 93010; 93306-TC; 99285-25; J1756; J7030; P9038; P9058